=== PATIENT | male | born 1995 | race African-American/Black ===

== ENCOUNTER 2021-10-08 10:30 | Outpatient (CLI) | payer SELFPAY | END 2021-10-08 10:31 | disposition home or self-care (01) | LOC: AMB 10-19 08:06 | PROVIDERS: Visit Provider Family Medicine | DX: S09.90XA Unspecified injury of head, initial encounter (principal); V48.5XXA Car driver injured in noncollision transport accident in traffic accident, initial encounter; Y92.410 Unspecified street and highway as the place of occurrence of the external cause | CPT/HCPCS: A0425; A0429 ==

== ENCOUNTER 2021-10-08 11:05 | Emergency (ER) | payer SELFPAY ==
[2021-10-08] VITALS (7 sets, daily range): BP systolic 107–122; BP diastolic 56–71; PULSE 65–82; RESP 12–67; TEMP 36.8; O2SAT 99–100; BMI 24.4
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
[2021-10-08 11:27] LABS: Basophils Absolute Auto 0.03 K/uL (0.00-0.30); Basophils Percent Auto 0.5 % (0.0-3.0); Eosinophils Absolute Auto 0.21 K/uL (0.00-0.50); Eosinophils Percent Auto 3.6 % (0.0-7.0); Hematocrit 45.9 % (37.0-53.0); Hemoglobin* 15.6 gm/dL (13.5-17.5); Immature Granulocytes Abs Auto 0.01 K/uL (0.00-0.30); Lymphocytes Percent Auto 47.1 % (20-44); Mean Corpuscular HGB Conc 34 gm/dL (32-36); Mean Corpuscular Hemoglobin 32 pg (26-34); Mean Corpuscular Volume 93 fL (80-100); Monocytes Percent Auto 6.6 % (0.0-11.0); Neutrophils Absolute Auto 2.44 K/uL (1.7-7.0); Platelet Count* 256 K/uL (140-440); RDW Coefficient of Variation % 12.8 % (11.5-15.5); Red Blood Count 4.94 m/uL (4.30-5.90)
[2021-10-08] MEDS: 0.9 % SODIUM CHLORIDE 1000 ml 1,000 ML IV (11:44)
--- NOTE | 2021-10-08 12:04 | PC.NURSE ---
[employer] deputy with pt, legal draw performed by lab
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
[2021-10-08 12:21] LABS: Albumin* 4.7 g/dL (3.3-5.0); Chloride* 107 mmol/L (96-114)
[2021-10-08 12:22] LABS: Potassium* 3.7 mmol/L (3.6-5.1); Sodium* 142 mmol/L (135-149)
[2021-10-08 12:24] LABS: Alanine Aminotransferase* 14 U/L (4-50); Alkaline Phosphatase* 71 U/L (40-150); Aspartate Amino Transferase* 31 U/L (12-35); Bilirubin Total* 0.5 mg/dL (0.1-1.5); Blood Urea Nitrogen* 13 mg/dL (5-24); Carbon Dioxide* 25 mmol/L (20-32); Est. Creatinine Clearance* 122.87; Estimated Glomerular Filt Rate 106.45; Glucose* 93 mg/dL (60-115); Total Protein* 7.6 g/dL (6.0-8.3)
[2021-10-08 12:25] LABS: Calcium* 9.1 mg/dL (8.4-10.6)
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
[2021-10-08 13:25] LABS: Ethanol* 0.28 % (0.01-0.03)
--- NOTE | 2021-10-08 14:09 | PC.NURSE ---
taxi on its way to get pt in 15-20min
--- NOTE | 2021-10-08 14:23 | PC.NURSE ---
pt left via taxi for his residence
[2021-10-08 17:44] LABS: Slide Review Reflex No
== END 2021-10-08 14:25 | disposition home or self-care (01) ==
LOC: ED 13:52
PROVIDERS: Emergency Provider Family Medicine
DX: S01.111A Laceration without foreign body of right eyelid and periocular area, initial encounter (principal); V49.88XA Car occupant (driver) (passenger) injured in other specified transport accidents, initial encounter; W22.11XA Striking against or struck by driver side automobile airbag, initial encounter
CPT/HCPCS: 12013; 36415; 70450; 70486; 71260; 72125; 74177; 80053; 80306; 81001; 82077; 85025; 99285; 99291; G0390; J7030; Q9967